=== PATIENT | male | born 1965 | race Caucasian/White ===

== ENCOUNTER 2020-11-27 07:40 | Inpatient (IN) ==
[2020-11-27] MEDS ORDERED: SODIUM CHLORIDE 0.9% 1,000 ML IV STA (07:58)
[2020-11-27] MEDS ORDERED: DEXAMETHASONE 4 MG/1 ML VIAL IV STA (08:02)
[2020-11-27] MEDS ORDERED: AZITHROMYCIN INJ 500 MG in SODIUM CHLORIDE 0.9% 250 ML IV STA (08:05)
[2020-11-27 08:08] LABS: Basophils % 0.3 % (0.0-0.8); Eosinophils # 0.1 10*3/uL (0.0-0.87); Eosinophils % 0.7 % (0.00-10.9); Hematocrit 37.9 VOL% (42.0-52.0); Immature Granulocytes Absolute 0.15 #; Lymphocytes # 1.7 10*3/uL (1.4-4.0); Lymphocytes % 11.9 % (21.2-54.2); Mean Corpuscular HGB Conc 34.3 GM/DL (32-36); Mean Corpuscular Volume 91.8 FL (87-102); Neutrophils % 76.1 % (38.7-73.9); Platelet Count 366 T/CUMM (130-400); Red Blood Count 4.13 MC/CUMM (3.8-5.5); Red Cell Distribution Width 12.7 % (9.3-17.3); White Blood Count 14.3 T/CUMM (4-12)
[2020-11-27 08:39] LABS: INR 1.2; PT Patient Result 13.4 SECS (10.5-12.0)
[2020-11-27 09:28] LABS: Albumin 2.3 G/DL (3.4-5.0); Bilirubin,Total 0.7 MG/DL (0.20-1.00); Calcium 8.2 MG/DL (8.5-10.1); Ferritin 1065.9 ng/mL (26-388); Potassium 3.9 MMOL/L (3.5-5.1); Total Protein 6.7 G/DL (6.4-8.2)
[2020-11-27] MEDS ORDERED: HEPARIN 5,000 UNIT/1 ML VIAL IV STA ×2 (09:29→15:59)
[2020-11-27] MEDS ORDERED: GLUCAGON 1 MG VIAL IM PRN (11:52)
[2020-11-27] MEDS ORDERED: DEXTROSE 50% 25 GM/50 ML VIAL IV PRN (11:52)
[2020-11-27] MEDS ORDERED: ONDANSETRON 4 MG/2 ML VIAL IV PRN (11:52)
[2020-11-27 12:32] LABS: Thyroid Stimulating Hormone 0.527 uIU/ml (0.358-3.74)
[2020-11-27] MEDS: HEPARIN DRIP 25,000 UNITS/500 ML PREMIX IV SCH (13:20)
[2020-11-27] MEDS: cefTRIAXone 2,000 MG in SODIUM CHLORIDE 0.9% 100 ML IV SCH (14:00)
[2020-11-27] MEDS: methylPREDNISolone SOD SUC 40 MG/1 ML VIAL IV SCH (15:19)
[2020-11-28] MEDS: methylPREDNISolone SOD SUC 40 MG/1 ML VIAL IV SCH ×2 (02:47→14:08)
[2020-11-28 06:20] LABS: Basophils % 0.1 % (0.0-0.8); Hematocrit 35.1 VOL% (42.0-52.0); Hemoglobin 11.3 GM/DL (14.0-18.0); Immature Granulocytes % 0.7 %; Immature Granulocytes Absolute 0.11 #; Lymphocytes # 1.4 10*3/uL (1.4-4.0); Lymphocytes % 9.3 % (21.2-54.2); Mean Corpuscular HGB Conc 32.2 GM/DL (32-36); Mean Corpuscular Volume 93.9 FL (87-102); Mean Platelet Volume 10.6 FL (9.6-12.0); Monocytes % 3.6 % (1.7-12.7); Neutrophils % 86.3 % (38.7-73.9); Platelet Count 410 T/CUMM (130-400); Red Blood Count 3.74 MC/CUMM (3.8-5.5); Red Cell Distribution Width 12.4 % (9.3-17.3)
[2020-11-28 06:40] LABS: Hypochromasia 1+
[2020-11-28 06:41] LABS: Microcytosis 1+; Platelet Estimate Increased
[2020-11-28 06:43] LABS: Albumin 2.3 G/DL (3.4-5.0); Bilirubin,Total 0.7 MG/DL (0.20-1.00); Calcium 8.8 MG/DL (8.5-10.1); Osmolality,Calculated 276.8 MOS/KG (273-304); Potassium 5.1 MMOL/L (3.5-5.1); Total Protein 6.9 G/DL (6.4-8.2)
[2020-11-28] MEDS: HEPARIN DRIP 25,000 UNITS/500 ML PREMIX IV SCH ×3 (06:43→22:40)
[2020-11-28] MEDS: ZINC GLUCONATE 50 MG TABLET PO SCH (08:35)
[2020-11-28] MEDS: ASCORBIC ACID 500 MG TABLET PO SCH (08:35)
[2020-11-28] MEDS: CHOLECALCIFEROL 1,000 UNIT TABLET PO SCH (08:35)
[2020-11-28] MEDS: PANTOPRAZOLE 40 MG TABLET PO SCH (08:35)
[2020-11-28] MEDS ORDERED: HEPARIN 5,000 UNIT/1 ML VIAL IV ONE (11:05)
[2020-11-28] MEDS ORDERED: AZITHROMYCIN INJ 500 MG in SODIUM CHLORIDE 0.9% 250 ML IV SCH (12:00)
[2020-11-28] MEDS: cefTRIAXone 2,000 MG in SODIUM CHLORIDE 0.9% 100 ML IV SCH (14:08)
[2020-11-29] MEDS: methylPREDNISolone SOD SUC 40 MG/1 ML VIAL IV SCH ×2 (03:40→21:00)
[2020-11-29 05:17] LABS: Basophils % 0.1 % (0.0-0.8); Hemoglobin 11.4 GM/DL (14.0-18.0); Immature Granulocytes % 0.6 %; Lymphocytes # 1.8 10*3/uL (1.4-4.0); Lymphocytes % 11.9 % (21.2-54.2); Mean Corpuscular HGB Conc 32.6 GM/DL (32-36); Mean Corpuscular Volume 94.3 FL (87-102); Mean Platelet Volume 10.8 FL (9.6-12.0); Monocytes % 5.1 % (1.7-12.7); Neutrophils % 82.3 % (38.7-73.9); Platelet Count 389 T/CUMM (130-400); Red Blood Count 3.71 MC/CUMM (3.8-5.5); Red Cell Distribution Width 12.4 % (9.3-17.3); White Blood Count 15.5 T/CUMM (4-12)
[2020-11-29 05:48] LABS: Albumin 2.1 G/DL (3.4-5.0); Bilirubin,Total 0.6 MG/DL (0.20-1.00); Calcium 8.6 MG/DL (8.5-10.1); Osmolality,Calculated 282.4 MOS/KG (273-304); Potassium 4.9 MMOL/L (3.5-5.1); Total Protein 6.5 G/DL (6.4-8.2)
[2020-11-29 05:53] LABS: Lymphocytes 12 % (20-55); Platelet Estimate Adequate; Segmented Neutrophils 85 % (50-85); Total Cells Counted 100
[2020-11-29 05:54] LABS: Hypochromasia Slight; Microcytosis Slight
[2020-11-29] MEDS: CHOLECALCIFEROL 1,000 UNIT TABLET PO SCH (09:52)
[2020-11-29] MEDS: PANTOPRAZOLE 40 MG TABLET PO SCH (09:52)
[2020-11-29] MEDS: ASCORBIC ACID 500 MG TABLET PO SCH (09:52)
[2020-11-29] MEDS: ZINC GLUCONATE 50 MG TABLET PO SCH (09:52)
[2020-11-29] MEDS: HEPARIN DRIP 25,000 UNITS/500 ML PREMIX IV SCH (12:37)
[2020-11-29] MEDS: cefTRIAXone 2,000 MG in SODIUM CHLORIDE 0.9% 100 ML IV SCH (14:40)
[2020-11-29] MEDS: AZITHROMYCIN 250 MG TABLET PO SCH (14:40)
[2020-11-30] MEDS: HEPARIN DRIP 25,000 UNITS/500 ML PREMIX IV SCH (02:02)
[2020-11-30 05:50] LABS: Basophils % 0.2 % (0.0-0.8); Hematocrit 36.2 VOL% (42.0-52.0); Hemoglobin 11.7 GM/DL (14.0-18.0); Immature Granulocytes % 1.3 %; Immature Granulocytes Absolute 0.15 #; Lymphocytes # 1.6 10*3/uL (1.4-4.0); Lymphocytes % 13.5 % (21.2-54.2); Mean Corpuscular HGB Conc 32.3 GM/DL (32-36); Mean Corpuscular Volume 95.3 FL (87-102); Mean Platelet Volume 10.5 FL (9.6-12.0); Monocytes % 3.5 % (1.7-12.7); Neutrophils % 81.5 % (38.7-73.9); Platelet Count 445 T/CUMM (130-400); Red Cell Distribution Width 12.6 % (9.3-17.3)
[2020-11-30 06:11] LABS: Calcium 8.8 MG/DL (8.5-10.1); Osmolality,Calculated 279.7 MOS/KG (273-304); Potassium 5.5 MMOL/L (3.5-5.1)
[2020-11-30 06:13] LABS: Albumin 2.3 G/DL (3.4-5.0); Bilirubin,Total 0.9 MG/DL (0.20-1.00); Calcium 8.9 MG/DL (8.5-10.1); Osmolality,Calculated 280.5 MOS/KG (273-304); Potassium 5.3 MMOL/L (3.5-5.1); Total Protein 6.7 G/DL (6.4-8.2)
[2020-11-30 06:39] LABS: Lymphocytes 9 % (20-55); Platelet Estimate Increased; Segmented Neutrophils 87 % (50-85); Total Cells Counted 100
[2020-11-30] MEDS ORDERED: APIXABAN 5 MG TABLET PO SCH (09:00)
[2020-11-30] MEDS: methylPREDNISolone SOD SUC 40 MG/1 ML VIAL IV SCH (09:34)
[2020-11-30] MEDS: ZINC GLUCONATE 50 MG TABLET PO SCH (09:35)
[2020-11-30] MEDS: AZITHROMYCIN 250 MG TABLET PO SCH (09:35)
[2020-11-30] MEDS: CHOLECALCIFEROL 1,000 UNIT TABLET PO SCH (09:35)
[2020-11-30] MEDS: PANTOPRAZOLE 40 MG TABLET PO SCH (09:35)
[2020-11-30] MEDS: ASCORBIC ACID 500 MG TABLET PO SCH (09:36)
[2020-11-30 12:12] VITALS: BP 104/65
== END 2020-11-30 14:09 | disposition home or self-care (01) | DRG 175 ==
LOC: N.ED 07:40 → SUATTDRO 11:51 → N.EDINP 11:51 → N.CC 22:57 → N.5E 11-28 16:49
PROVIDERS: ADMIT Internal Medicine; ATTEND Hospitalist